=== PATIENT | male | born 1995 | race Caucasian/White ===

== ENCOUNTER 2024-11-08 20:57 | Inpatient (IN) | payer OTHER ==
[~2024-11-08] VITALS: Ht 185.4 cm; Wt 85.5 kg
[2024-11-08 21:44] LABS: HEMOGLOBIN 13.8 g/dl (13.5-17.5); MEAN CORPUSCULAR HEMOGLOBIN 30.1 pg (27.0-33.0); MEAN CORPUSCULAR HGB CONC 34.5 g/dl (32.0-36.5); MEAN CORPUSCULAR VOLUME 87.1 fl (80.0-96.0); PLATELET COUNT, AUTOMATED 242 10^3/uL (150-450); RED BLOOD COUNT 4.59 10^6/uL (4.30-6.10); WHITE BLOOD COUNT 6.5 10^3/uL (4.0-10.0)
[2024-11-08] MEDS ORDERED: NAPR-885 PO (22:12)
[2024-11-08 22:15] LABS: AMPHETAMINES LEVEL URINE NEGATIVE (NEGATIVE); BARBITURATES URINE NEGATIVE (NEGATIVE); BENZODIAZEPINES URINE NEGATIVE (NEGATIVE); CANNABINOIDS URINE NEGATIVE (NEGATIVE); COCAINE METABOLITE URINE NEGATIVE (NEGATIVE); METHADONE URINE NEGATIVE (NEGATIVE); OPIATES URINE NEGATIVE (NEGATIVE); PHENCYCLIDINE URINE NEGATIVE (NEGATIVE)
[2024-11-08] MEDS ORDERED: HOME MED LIST COMPLETE! XX SCH (22:15)
[2024-11-08 22:17] LABS: ETHYL ALCOHOL (ETHANOL) < 0.003 % (0.000-0.010)
[2024-11-08 22:19] LABS: ALBUMIN 4.6 G/DL (3.2-5.2); ALKALINE PHOSPHATASE 52 U/L (40-129); ALT/SGPT 27 U/L (7.0-40); AST/SGOT 21 U/L (<34); BILIRUBIN,DIRECT < 0.1 MG/DL (<0.4); BILIRUBIN,TOTAL 0.3 MG/DL (0.3-1.2); BLOOD UREA NITROGEN 18 MG/DL (9-23); CALCIUM LEVEL 9.3 MG/DL (8.5-10.1); CARBON DIOXIDE LEVEL 28 MMOL/L (20-31); CHLORIDE LEVEL 106 MMOL/L (98-107); CREATININE FOR GFR 0.77 MG/DL (0.70-1.30); GLOMERULAR FILTRATION RATE > 90.0 (>60); GLUCOSE, FASTING 120 MG/DL (60-100); POTASSIUM SERUM 3.6 MMOL/L (3.5-5.1); SALICYLATE LEVEL < 3.0 MG/DL (<30); SODIUM LEVEL 144 MMOL/L (136-145); TOTAL PROTEIN 7.1 G/DL (5.7-8.2)
[2024-11-08 22:21] LABS: THYROID STIMULATING HORMONE 2.245 uIU/ML (0.55-4.78)
[2024-11-08] MEDS ORDERED: traZODone 50 MG TAB PO PRN (22:55)
[2024-11-08] MEDS ORDERED: MOM 30ML SUSPENSION UDC PO PRN (22:55)
[2024-11-08] MEDS ORDERED: IBUPROFEN 400MG TAB PO PRN (22:55)
[2024-11-08] MEDS ORDERED: ACETAMINOPHEN 325 MG TAB PO PRN (22:55)
[2024-11-08] MEDS ORDERED: diphenhydrAMINE 25MG CAP PO PRN (22:55)
[2024-11-08] MEDS ORDERED: MAALOX 30 ML SUSP *UDC PO PRN (22:55)
[2024-11-09 00:09] VITALS: BP 124/73; TEMP 97.3; O2SAT 99
[2024-11-09 06:38] VITALS: BP 149/69; TEMP 97.3; O2SAT 100
[2024-11-09] MEDS: ESCITALOPRAM OXALATE 10 MG TAB PO SCH (09:54)
[2024-11-09 14:54] VITALS: BP 146/79; TEMP 97.8; O2SAT 100
[2024-11-10 06:45] VITALS: BP 142/67; TEMP 97.1; O2SAT 100
[2024-11-10] MEDS: NAPROXEN 250 MG TAB PO PRN (09:03)
[2024-11-10] MEDS ORDERED: LEXA1TAB PO (12:03)
== END 2024-11-10 13:22 | disposition home or self-care (01) | DRG 881 ==
LOC: M ED 20:57 → M ED INP 22:53 → M PSY 23:53
PROVIDERS: ADMIT Psychiatry & Neurology Neurology; ATTEND Psychiatry & Neurology Neurology
DX: F32.9 Major depressive disorder, single episode, unspecified (principal); R45.851 Suicidal ideations; F41.1 Generalized anxiety disorder; F17.200 Nicotine dependence, unspecified, uncomplicated; F43.10 Post-traumatic stress disorder, unspecified; G89.29 Other chronic pain; Z91.51 Personal history of suicidal behavior; Z56.89 Other problems related to employment; Z79.899 Other long term (current) drug therapy; Z62.810 Personal history of physical and sexual abuse in childhood